=== PATIENT | female | born 1975 | race Caucasian/White ===

== ENCOUNTER 2025-10-04 13:15 | Outpatient (CLI) | payer OTHER, SELFPAY ==
[2025-10-04 11:27] LABS: Abs Immature Grans 0.01 10^3/uL (0.0-0.06); HCT 40.4 % (36.0-46.0); HGB 11.9 g/dL (11.2-15.7); Immature Grans % 0.3 %; MCH 27.3 pg (27.0-33.0); MCHC 29.5 % (32.0-36.0); MCV 93 fL (80-95); MPV 10.8 fL (8.0-11.0); Platelet Count 279 10^3/uL (130-400); RBC 4.36 10^6/uL (3.93-5.22); RDW 21.9 % (11.7-14.6); RDW-SD 73.4 fL; WBC 3.96 10^3/uL (4.4-10.8)
[2025-10-04 11:41] LABS: Anisocytosis 2+
[2025-10-04 12:05] LABS: TSH 3.34 uIU/mL (0.55-4.78)
[2025-10-04 12:06] LABS: Folate 18.6 ng/mL (>5.38); Vitamin B12 833 pg/mL (211-911)
[2025-10-04 12:07] LABS: ALT 16 U/L (10-49); AST 21 U/L (<34); Albumin 4.2 g/dL (3.4-5.0); Alkaline Phosphatase 85 U/L (46-116); Anion Gap 8.8 mmol/L (3-11); BUN 16 mg/dL (9-23); Bilirubin, Total 0.40 mg/dL (0.2-1.2); CO2 29.2 mmol/L (20.0-31.0); Calcium 9.2 mg/dL (8.3-10.6); Chloride 107 mmol/L (98-107); Glucose 84 mg/dL (74-106); Potassium 3.7 mmol/L (3.5-5.1); Sodium 145 mmol/L (136-145); Total Protein 6.5 g/dL (5.7-8.2)
[2025-10-04 12:15] LABS: Iron 65 ug/dL (50-170); Total Iron Binding Capacity 325 ug/dL (250-425)
[2025-10-04 12:19] LABS: Vitamin D 25 Total 30 ng/mL (30-100)
[2025-10-04 17:03] LABS: Hemoglobin A1C 4.8 % (<5.7)
[2025-10-07 11:23] LABS: Thiamine (Vitamin B1), WB 136 nmol/L (70-180)
== END 2025-10-04 13:16 | disposition home or self-care (01) ==
LOC: LBO 13:16
PROVIDERS: PCP Family Medicine; Visit Provider Family Medicine
DX: Z00.00 Encounter for general adult medical examination without abnormal findings (principal); K91.2 Postsurgical malabsorption, not elsewhere classified
CPT/HCPCS: 36415; 80053; 80186; 82306; 83090; 82607; 82746; 83036; 83540; 83550; 84425; 84443; 85025

== ENCOUNTER 2025-10-20 09:06 | Day surgery (SDC) | payer OTHER, SELFPAY ==
--- NOTE | 2025-10-19 17:31 | W.ANESPRE ---
General Info Date of Service Date Performed: 10/20/25 Height: 5 ft 7 in Weight: 76 kg Body Mass Index (BMI): 26.2 Surgical Procedure: Operation Date: 10/20/25 10:35 Proposed Procedure Side Surgeon p Gastroscopy Renetta Yarbrough MD Meds Allergies and Home Medications Allergies Allergy/AdvReac Type Severity Reaction Status Date / Time venlafaxine (From Effexor) Allergy Severe suicidal Verified 10/20/25 09:26 thoughts lamotrigine (From Lamictal) Allergy Mild hives Verified 10/20/25 09:26 nortriptyline Allergy Unknown Hives Verified 10/20/25 09:26 Home Medication ?Medication ?Instructions ?Recorded biotin 1 mg capsule 1 mg PO DAILY 10/01/25 buprenorphine 7.5 mcg/hour weekly 1 patch transdermal Q7D 10/01/25 transdermal patch (Butrans) Held on 10/18/25. Instructions: Changed by Provider cetirizine 10 mg tablet (Zyrtec) 10 mg PO DAILY PRN 10/01/25 dextroamphetamine-amphetamine ER 20 mg PO DAILY 10/01/25 20 mg 24hr capsule,extend release (Adderall XR) diclofenac sodium 1 % topical gel 4 g topical QID 10/01/25 famotidine 20 mg tablet 20 mg PO QDAY 10/01/25 loperamide 2 mg capsule 2 mg PO QID PRN 10/01/25 omeprazole 20 mg capsule,delayed 20 mg PO QDAY 10/01/25 release omeprazole 40 mg capsule,delayed 40 mg PO QDAY 10/01/25 release oxycodone 5 mg tablet 5 mg PO BID PRN 10/01/25 buprenorphine HCl 2 mg sublingual 8 mg sublingual DAILY 10/04/25 tablet Current Visit Medications: Current Medications Generic Name Dose Route Start Last Admin Trade Name Freq PRN Reason Stop Dose Admin Ringer's Solution 1,000 mls @ 80 mls/hr 10/20/25 06:00 IV 10/20/25 23:59 INFUSION ZULAY Sodium Chloride 0 ml 10/20/25 06:00 Normal Saline Flush 10 Ml Syr IV 10/20/25 23:59 PRN PRN Sodium Chloride 0 ml 10/20/25 06:00 Normal Saline 10 Ml Vial IJ 10/20/25 23:59 DIRECTED PRN Sterile Water 0 ml 10/20/25 06:00 Water,Injection,Sterile 10 Ml Vial IJ 10/20/25 23:59 DIRECTED PRN PFSH Active Problems Active Problems: Problem Status Onset Code Difficulty swallowing solids Acute R13.10 Microcytic hypochromic anemia Acute D50.9 Chronic ankle pain Acute M25.579, G89.29 Malabsorption syndrome Acute K90.9 Chronic pain Chronic G89.29 ADHD Acute F90.9 Vomiting Acute R11.10 Gagging episode Acute R19.8 GERD (gastroesophageal reflux disease) Chronic K21.9 Medical History Medical History Epilepsy 10/21/25-pt reports no seizure activity in 2 yrs. memory loss as a result Surgical History Surgical History H/O discectomy L4/L5 History of ankle surgery R ankle, surgeries x 3-due for 4th History of carpal tunnel release of both wrists 2015 and 2016 History of gastric bypass (~1994) Tobacco Smoking/Tobacco Use Status: Never Alcohol Alcohol Intake: former Substance Use Substance use: Rarely Substance use type: marijuana Details: ETOH impacts GI system Vital Signs and Lab Results Vital Signs Most Recent Vital Signs in EMR: Temp Pulse Resp BP Pulse Ox 36.7 C 68 16 105/73 99 10/20/25 09:32 10/20/25 09:32 10/20/25 09:32 10/20/25 09:32 10/20/25 09:32 Lab Results Complete Blood Count: WBC, (4.4-10.8) 3.96 10^3/uL L 10/04/25, 11:13 RBC, (3.93-5.22) 4.36 10^6/uL 10/04/25, 11:13 Hgb, (11.2-15.7) 11.9 g/dL 10/04/25, 11:13 Hct, (36.0-46.0) 40.4 % 10/04/25, 11:13 Plt Count, (130-400) 279 10^3/uL 10/04/25, 11:13 Complete Metabolic Panel: Sodium, (136-145) 145 mmol/L 10/04/25, 11:13 Potassium, (3.5-5.1) 3.7 mmol/L 10/04/25, 11:13 Chloride, (98-107) 107 mmol/L 10/04/25, 11:13 Carbon Dioxide, (20.0-31.0) 29.2 mmol/L 10/04/25, 11:13 BUN, (9-23) 16 mg/dL 10/04/25, 11:13 Creatinine, (0.55-1.02) 0.67 mg/dL 10/04/25, 11:13 Est GFR (CKD-EPI 2020), (mL/min/1.73m2) 93.60 10/04/25, 11:13 Calcium, (8.3-10.6) 9.2 mg/dL 10/04/25, 11:13 Albumin, (3.4-5.0) 4.2 g/dL 10/04/25, 11:13 Glucose, (74-106) 84 mg/dL 10/04/25, 11:13 Hemoglobin A1c, (<5.7) 4.8 % 10/04/25, 11:13 Liver Function Panel: ALT, (10-49) 16 U/L 10/04/25, 11:13 AST, (<34) 21 U/L 10/04/25, 11:13 Thyroid Panel: TSH, (0.55-4.78) 3.34 uIU/mL 10/04/25, 11:13 Anesthesia Assessment and Plan Anesthesia History Personal History: No History of Anesthesia Complications Family History: No Family History of Anesthesia Complications Exercise Tolerance Exercise Tolerance: Metabolic Equivalents<4 Pertinent Negatives Pertinent Negatives: No Major Cardiovascular Symptoms or Complaints, No Major Pulmonary Symptoms or Complaints and No History of CVA/TIA Cardiac & Pulmonary Exam Cardiac Exam: Normal S1/S2 Heart Sounds Pulmonary Exam: Clear Bilateral Breath Sounds Implantable Cardiac Device Does patient have a Pacemaker or an ICD?: No Airway Exam Known Difficult Airway: No Mallampati Class: 2 Mouth Opening: Normal (> 3cm) Thyromental Distance: Greater than 3 cm Neck Range of Motion: Full ROM Neck Circumference: Normal Teeth Condition: Generalized Poor Dentition and Removable Dentures/Plates Lower ASA Classification ASA Score: ASA 2 Emergency Case?: No NPO Status NPO Status: NPO Clears >2 hours, Solids >8 hours Status Status: Negative HCG Anesthesia Plan Resuscitation Status: Full Code Anesthesia Technique: General Anesthesia Airway Planned: Natural Airway Monitors Used: Standard Monitors Preoperative Comments:: 49 yo for EGD. Sig PMHx: GERD (omeprazole 60 mg twice daily), epilepsy (hasn't been on drugs for a while, hasn't had a seizure in a while), s/p GBypass Never smoker.
[2025-10-20 09:32] VITALS: BP 105/73; PULSE 68; RESP 16; TEMP 36.7; O2SAT 99
[2025-10-20] MEDS: Lactated Ringers 1,000 ML 80 ML IV (10:11)
[2025-10-20 10:40] VITALS: BMI 26.2
--- NOTE | 2025-10-20 10:56 | STOM_PTH ---
PATIENT: Mary Serna LOC: [facility] U#:[id number] AGE/SX: 49/F ROOM: RE10/20/[address]: Renetta Yarbrough : 1975 BED: DIS: 10/20/2025 SPEC #: [id number] RECD: 10/20/25 13:00 STATUS: LYNNE BURDEN #: [id number] HEATH: 10/20/25 10:[address]: Renetta Yarbrough DEPT: Surgical Specimen RECD BY: Alicia Murillo Tissues: 1 - STOMACH BIOPSY 2 - ESOPHAGUS BIOPSY Procedures: GROSS AND MICRO LEVEL 4 Comments: [id number]
--- NOTE | 2025-10-20 11:02 | W.PM.DSUDISC ---
Date of service: 10/20/25 Discharge Plan Disposition Patient Disposition: Home Condition: Good Discharge Details Reason For Visit: Dysphagia, emesis, reflux Attending Provider: Renetta Yarbrough Primary Care Provider: Geovany Sauceda Recommendations for Follow Up Recommended tests to be ordered by follow up provider: Follow up pathology Home Meds and New Rx's Prescriptions: Continued loperamide 2 mg capsule 2 mg PO QID PRN cetirizine [Zyrtec] 10 mg tablet 10 mg PO DAILY PRN omeprazole 40 mg capsule,delayed release(DR/EC) 40 mg PO QDAY famotidine 20 mg tablet 20 mg PO QDAY dextroamphetamine-amphetamine [Adderall XR] 20 mg capsule,extended release 24hr 20 mg PO DAILY omeprazole 20 mg capsule,delayed release(DR/EC) 20 mg PO QDAY oxycodone 5 mg tablet 5 mg PO BID PRN diclofenac sodium 1 % gel 4 g topical QID Rx Instructions: apply to single knee, ankle, foot; for foot includes sole/toes/top of foot biotin 1 mg capsule 1 mg PO DAILY buprenorphine [Butrans] 7.5 mcg/hour patch weekly 1 patch transdermal Q7D buprenorphine HCl 2 mg tablet, sublingual 8 mg sublingual DAILY Discharge Instructions Additional Instructions: Your procedure went well today. You did have evidence of a stricture or narrowing at the connection between the stomach and small intestine. You also had evidence of a hiatal hernia. Some biopsies were performed during the procedure. When these biopsy results returned we will contact you via mail. If you have any questions or concerns in the interim please contact the general surgery office. 1. If tolerated, consume a soft, low fiber diet for 1-2 days. [address] not drive, drink alcohol, operate machinery, make critical decisions, or do activities that require coordination or balance for 24 hours. 3. Go directly to the emergency room if you notice any of the following: Develop chills (warm to touch), or if you have a thermometer and your temperature is above 101 Difficulty breathing or difficultly swallowing Persistent vomiting Severe abdominal pain, other than gas cramps Severe chest pain Black, tarry stools Any bleeding ? exceeding one tablespoon 4. Call your physician if the site where your intravenous was started becomes red, swollen, painful, and warm to touch. 5. Your physician has reviewed your pre-procedure medications. Please continue to take those medications as previously ordered. You will be given specific information/education regarding any changes to your medications before leaving. Stand Alone Forms: Anesthesia Discharge Inst., Markel Parr ([facility]), Portal Information Activity:: Activity as Tolerated Diet:: As Tolerated Discharge Orders Discharge Orders: Discharge Order (Routine); Ordered 10/20/25 Ordered By: Renetta Yarbrough
[2025-10-20 11:04] VITALS: BP 112/67; PULSE 65; RESP 16; TEMP 36.2; O2SAT 98
--- NOTE | 2025-10-20 11:05 | W.PM.ENDDOP ---
Date of service: 10/20/25 Time of Service: 11:06 Endoscopy Report DATE OF PROCEDURE: 10/20/25 PRE-OP DIAGNOSIS: Dysphagia, Emesis, Reflux POST-OP DIAGNOSIS: other (GJ stricture ) PROCEDURE: Upper endoscopy with biopsy SURGEON: Renetta Yarbrough ANESTHESIA TYPE: General:No Airway ESTIMATED BLOOD LOSS: 1 PATHOLOGY: other (GJ biopsy, GE junction biopsy) COMPLICATIONS: None DISPOSITION: PACU INDICATIONS: Patient is a 49-year-old female with history of gastric bypass who presented with ongoing emesis, dysphagia, and reflux. The risks and benefits of the procedure were discussed with her including the fact that I will be diagnostic upper endoscopy. She was understanding of this and consent was obtained prior to the procedure. FINDINGS: Gastro jejunostomy anastomosis narrow with evidence of stricture. The scope was able to traverse the anastomosis but not be advanced to much further due to narrowing. A cold forcep biopsy of the GJ anastomosis was performed as well as the gastroesophageal junction biopsy. There was evidence of a small hiatal hernia. PROCEDURE DESCRIPTION: After adequate sedation, the upper endoscope was inserted and advanced under direct visualization. There was a known gastric bypass. There was evidence of narrowing at the GJ anastomosis. The scope was able to traverse the anastomosis but was not advanced further due to narrowing. A cold forcep biopsy was obtained at the GJ anastomosis. There was no evidence of ulceration of the stomach or anastomosis. There was evidence of a small hiatal hernia. The GE junction appeared normal and a cold forcep biopsy was performed at the GE junction. Otherwise the esophagus was normal and had no evidence of strictures. The scope was completely withdrawn from the patient. The patient tolerated the procedure well with no immediate complications.
--- NOTE | 2025-10-20 11:12 | W.ANESPOSTOP ---
Postoperative Evaluation Date, Time and Location Date Performed: 10/20/25 Time Performed: 11:10 Patient Location: Day Surgery Unit Vital Signs Most Recent Imported Vital Signs: Most Recent Vital Signs Temp Pulse Resp BP Pulse Ox 36.2 C L 65 16 112/67 98 10/20/25 11:04 10/20/25 11:04 10/20/25 11:04 10/20/25 11:04 10/20/25 11:04 Pain Score Most Recent Pain Score: Most Recent Pain Score Pain Level 0 10/20/25 11:04 Assessment Mental Status: Awake (Alert & Oriented to Patient Baseline) Airway and Respiratory Function: Patent airway with normal (patient baseline) respiratory exam Cardiovascular Function: Hemodynamically Stable Hydration Status: Adequately Hydrated Nausea & Vomiting: No Nausea or Vomiting Pain: Pt. Denies Any Pain Peripheral Nerve Block: Patient did not receive a nerve block Teaching Patient Teaching: Discussed the importance of using CPAP/BiPAP during any sleep period
[2025-10-20 11:32] VITALS: BP 116/87; PULSE 65; RESP 16; TEMP 36.5; O2SAT 98
== END 2025-10-20 11:51 | disposition home or self-care (01) ==
PROVIDERS: PCP Family Medicine; Visit Provider Student in an Organized Health Care Education/Training Program
PROC: 0DJ68ZZ Inspection of Stomach, Via Natural or Artificial Opening Endoscopic (ICD-10-PCS; CPT 43235; principal; 2025-10-20 10:30)
DX: R13.10 Dysphagia, unspecified (principal); K92.89 Other specified diseases of the digestive system; K21.9 Gastro-esophageal reflux disease without esophagitis; R11.10 Vomiting, unspecified; K22.89 Other specified disease of esophagus
CPT/HCPCS: 43239; 81025; 88305; J2250; J2405; J2704